=== PATIENT | male | born 1980 | race Hispanic/Latino ===

== ENCOUNTER 2025-07-04 14:57 | Emergency (ER) | payer SELFPAY ==
[~2025-07-04] VITALS: Ht 175.3 cm; Wt 88.5 kg
[2025-07-04 15:15] VITALS: PULSE 111; RESP 18; TEMP 99.3; O2SAT 99
[2025-07-04] MEDS: DOXYCYCLINE HYCLATE TABLET 100 MG TAB PO ONE (15:34)
[2025-07-04] MEDS ORDERED: DOXYCYCLINE HY100 MG PO (15:36)
== END 2025-07-04 15:49 | disposition home or self-care (01) ==
LOC: FSED 15:24
DX: L03.311 Cellulitis of abdominal wall (principal); R00.0 Tachycardia, unspecified; R42 Dizziness and giddiness
CPT/HCPCS: 99283